=== PATIENT | female | born 1960 | race Two or more races ===

== ENCOUNTER → 2024-03-12 | Outpatient (CLI) | payer OTHER, MEDICAID ==
[2024-03-12 07:24] LABS: Anion Gap 8 (5-15); Carbon Dioxide 28 mmol/L (20-31); Chloride 107 mmol/L (98-107); Sodium 143 mmol/L (136-145)
[2024-03-12 07:26] LABS: Calcium 9.6 mg/dL (8.7-10.4)
[2024-03-12 07:30] LABS: Glucose 98 mg/dL (74-106)
[2024-03-12 07:31] LABS: Blood Urea Nitrogen 15 mg/dL (9-23)
== END | disposition home or self-care (01) ==
LOC: LAB 06:17
PROVIDERS: ATTEND Internal Medicine
DX: R19.03 Right lower quadrant abdominal swelling, mass and lump (principal)
CPT/HCPCS: 36415; 80048

== ENCOUNTER → 2024-08-17 | Outpatient (CLI) | payer OTHER, MEDICAID ==
[2024-08-17 07:03] LABS: Basophils # (auto) 0 10 ^3/uL (0-0.2); Basophils % (auto) 0.7 % (0.0-2.0); Eosinophils # (auto) 0.2 10 ^3/uL (0-0.8); Eosinophils % (auto) 4.5 % (0.0-7.0); Hematocrit 40.7 % (36.0-46.0); Hemoglobin 13.4 g/dL (12.2-16.2); Lymphocytes # (auto) 2.4 10 ^3/uL (0.4-5.4); Lymphocytes % (auto) 43.7 % (10.0-50.0); Mean Corpuscular Hemoglobin 29.9 pg (28.0-32.0); Mean Corpuscular Hgb Conc. 33.1 g/dL (32.0-36.0); Mean Corpuscular Volume 90.4 fL (80.0-100.0); Monocytes # (auto) 0.5 10 ^3/uL (0-1.3); Monocytes % (auto) 9.1 % (0.0-12.0); Neutrophils # (auto) 2.3 10 ^3/uL (1.6-8.6); Platelet Count (auto) 269 10^3/uL (140-450); Red Cell Distribution Width 14.3 % (11.8-14.3); White Blood Cell 5.5 10^3/uL (4.4-10.8)
[2024-08-17 07:11] LABS: Urine Bacteria FEW /hpf (None Seen); Urine Blood Negative /uL (Negative); Urine Clarity Clear (Clear); Urine Color Light-Yellow (Yellow); Urine Protein, UAD Negative (Negative); Urine Specific Gravity 1.021 (1.001-1.035); Urine Squamous Epithelial Cell FEW /hpf (<5); Urine Urobilinogen Normal (Negative); Urine WBC 11 /HPF (0-5); Urine pH 5.5 (5.0-9.0)
[2024-08-17 07:24] LABS: Alanine Aminotransferase 20 U/L (7-40); Albumin 4.7 g/dL (3.2-4.8); Alkaline Phosphatase 57 U/L (46-116); Anion Gap 5 (5-15); Aspartate Aminotransferase 26 U/L (13-40); BUN/Creatinine Ratio 17.6 (10.0-20.0); Blood Urea Nitrogen 19 mg/dL (9-23); Calcium 9.9 mg/dL (8.7-10.4); Carbon Dioxide 29 mmol/L (20-31); Cholesterol 168 mg/dL (< 200); Glucose 100 mg/dL (74-106); LDL Cholesterol 97 mg/dL (< 100); Potassium 4.4 mmol/L (3.5-5.1); Sodium 142 mmol/L (136-145); Total Protein 7.3 g/dL (5.7-8.2); Triglycerides 95 mg/dL (< 150)
[2024-08-17 07:25] LABS: Bilirubin, Total 0.5 mg/dL (0.2-1.0)
[2024-08-17 07:26] LABS: Chloride 108 mmol/L (98-107); HDL Cholesterol 61 mg/dL (40-59)
== END | disposition home or self-care (01) ==
LOC: LAB 06:17
PROVIDERS: ATTEND Internal Medicine
DX: N18.2 Chronic kidney disease, stage 2 (mild) (principal); E03.9 Hypothyroidism, unspecified; E78.00 Pure hypercholesterolemia, unspecified; E66.01 Morbid (severe) obesity due to excess calories; R73.03 Prediabetes; R03.0 Elevated blood-pressure reading, without diagnosis of hypertension; R82.90 Unspecified abnormal findings in urine
CPT/HCPCS: 36415; 80053; 80061; 81001; 83036; 84439; 84443; 85025

== ENCOUNTER 2025-05-10 06:48 | Outpatient (CLI) | payer OTHER, MEDICAID ==
[2025-05-10 08:00] LABS: Hematocrit 40.9 % (36.0-46.0); Hemoglobin 13.8 g/dL (12.2-16.2); Mean Corpuscular Hemoglobin 29.9 pg (28.0-32.0); Mean Corpuscular Volume 89.0 fL (80.0-100.0); Nucleated Red Blood Cells % 0.1 %
[2025-05-10 08:03] LABS: Urine Protein, UAD Negative (Negative)
[2025-05-10 08:27] LABS: Alanine Aminotransferase 22 U/L (7-40); Albumin 4.5 g/dL (3.2-4.8); Alkaline Phosphatase 61 U/L (46-116); Anion Gap 12 (5-15); BUN/Creatinine Ratio 16.5 (10.0-20.0); Blood Urea Nitrogen 15 mg/dL (9-23); Calcium 9.6 mg/dL (8.7-10.4); Carbon Dioxide 27 mmol/L (20-31); Chloride 105 mmol/L (98-107); Cholesterol 165 mg/dL (< 200); Glucose 90 mg/dL (74-106); Potassium 4.4 mmol/L (3.5-5.1); Sodium 144 mmol/L (136-145); Total Protein 7.4 g/dL (5.7-8.2); Triglycerides 121 mg/dL (< 150)
[2025-05-10 08:28] LABS: Bilirubin, Total 1.0 mg/dL (0.2-1.0); HDL Cholesterol 57 mg/dL (40-59)
== END 2025-05-10 17:00 | disposition home or self-care (01) ==
LOC: LAB 06:48
PROVIDERS: ATTEND Internal Medicine
DX: Z13.1 Encounter for screening for diabetes mellitus (principal); R73.03 Prediabetes; R03.0 Elevated blood-pressure reading, without diagnosis of hypertension; N18.31 Chronic kidney disease, stage 3a; Z00.01 Encounter for general adult medical examination with abnormal findings
CPT/HCPCS: 36415; 80053; 80061; 81001; 83036; 84439; 84443; 85025